=== PATIENT | male | born 2000 | race Caucasian/White ===

== ENCOUNTER 2025-01-20 07:50 | Outpatient (CLI) | payer OTHER ==
[2025-01-20 08:31] LABS: #Basophils 0.05 10x3/uL (0.0-0.2); #Eosinophils 0.17 10x3/uL (0.0-0.5); #Monocytes 0.42 10x3/uL (0.0-1.1); #Neutrophils 3.09 10x3/uL (1.5-8.4); %Basophils 0.8 % (0.0-2.0); %Eosinophils 2.9 % (0.0-6.0); %Lymphocytes 36.7 % (18.0-47.0); %Monocytes 7.1 % (0.0-10.0); %Neutrophils 52.3 % (40.0-75.0); Hematocrit 42.9 % (38.8-50.0); Hemoglobin 14.4 g/dL (13.5-17.5); Mean Corpuscular Hemoglobin 27.6 pg (27.0-33.0); Mean Corpuscular Volume 82.2 fL (81.2-95.1); Platelet Count 237 10x3/uL (150-450); Red Blood Cell (RBC) Count 5.22 10x6/uL (4.32-5.72); White Blood Cell (WBC) Count 5.91 10x3/uL (3.5-10.5)
[2025-01-20 08:43] LABS: Anion Gap 10 mmol/L (10-20); BUN (Urea Nitrogen) 12 mg/dL (8.9-20.6); Calc. Creatinine Clearance 0 mL/min (70-130); Calcium 9.3 mg/dL (7.8-10.44); Carbon Dioxide 29 mmol/L (22-29); Chloride 106 mmol/L (98-107); Glucose 94 mg/dL (70-105); Potassium 4.1 mmol/L (3.5-5.1); Sodium 141 mmol/L (136-145)
== END 2025-01-20 07:51 | disposition home or self-care (01) ==
LOC: CSHLAB 07:50
PROVIDERS: ATTEND Surgery
DX: Z01.812 Encounter for preprocedural laboratory examination (principal); K40.20 Bilateral inguinal hernia, without obstruction or gangrene, not specified as recurrent
CPT/HCPCS: 80048; 85025

== ENCOUNTER 2025-01-23 07:49 | Day surgery (SDC) | payer OTHER ==
[2025-01-20 08:18] VITALS: BMI 21.7
[2025-01-23] MEDS ORDERED: PROPOFOL 20 ML ONE (08:34)
[2025-01-23] MEDS ORDERED: Rocuronium Bromide 10 MG/ML (10ML VIAL) ONE (08:35)
[2025-01-23] MEDS ORDERED: Lidocaine 1% PF 5 ML VIAL ONE (08:35)
[2025-01-23] MEDS ORDERED: CEFAZOLIN 2 GM VIAL ONE (09:10)
[2025-01-23] MEDS ORDERED: Bupivacaine/Epinephrine 0.25% 30 ML VIAL ONE (09:11)
[2025-01-23] MEDS ORDERED: SUGAMMADEX SODIUM 200 MG/2 ML VIAL ONE (10:44)
[2025-01-23] MEDS ORDERED: Ondansetron PF 4 MG/2 ML Vial ONE (10:44)
[2025-01-23] MEDS ORDERED: Glycopyrrolate 0.2 MG/ML 5 ML SYRINGE ONE (10:44)
[2025-01-23] MEDS ORDERED: HYDROcodone/Acetaminophen 5/325 mg Tablet ONE (12:07)
== END 2025-01-23 13:00 | disposition home or self-care (01) ==
LOC: CSHSDC 07:49
PROVIDERS: ATTEND Surgery
PROC: 0YUA4JZ Supplement Bilateral Inguinal Region with Synthetic Substitute, Percutaneous Endoscopic Approach (ICD-10-PCS; principal; 2025-01-23)
DX: K40.20 Bilateral inguinal hernia, without obstruction or gangrene, not specified as recurrent (principal)
CPT/HCPCS: C1781; J1100; J2405; J2704; J3010; S2900

== ENCOUNTER 2025-03-11 12:21 | Outpatient (CLI) | payer OTHER | END 2025-03-11 12:22 | disposition home or self-care (01) | LOC: CSHULT 12:21 | PROVIDERS: ATTEND Family Medicine | DX: R19.03 Right lower quadrant abdominal swelling, mass and lump (principal) | CPT/HCPCS: 76999 ==